=== PATIENT | male | born 1960 | race Caucasian/White ===

== ENCOUNTER 2017-10-16 21:22 | Emergency (ER) | payer MEDICAID ==
--- NOTE | 2017-10-16 21:56 | EDM.PDOC ---
ED HPI GENERAL MEDICAL PROBLEM - General Chief Complaint: ENT Problem Stated Complaint: TOOTH PAIN Time Seen by Provider: 10/16/17 21:45 Source of Information: Reports: Patient History Limitations: Reports: No Limitations - History of Present Illness INITIAL COMMENTS - FREE TEXT/NARRATIVE: Patient is a 57-year-old male presents ED complaining of a pain to the left lower molar. Patient states he had a large filling fall out approximately one month ago. Has been experiencing intermittent pain to the affected tooth. Relieved with a temporary filling. He has not seen a dentist yet. States the pain has become more frequent thus prompting evaluation in in the ED. Denies any fever, nausea, swollen to the gumline, purulent drainage, neck pain, sore throat, or any additional complaints. Left Lower Tooth/Teeth Pain Score (Numeric/FACES): 9 - Related Data Allergies Allergy/AdvReac Type Severity Reaction Status Date / Time No Known Allergies Allergy Verified 10/16/17 21:35 Home Meds: Home Meds Lisinopril 10 mg PO DAILY 10/16/17 [History] Past Medical History Cardiovascular History: Reports: Hypertension Musculoskeletal History: Reports: Other (See Below) Other Musculoskeletal History: right knee scope Social & Family History - Tobacco Use Smoking Status *Q: Never Smoker - Caffeine Use Caffeine Use: Reports: Coffee, Energy Drinks - Recreational Drug Use Recreational Drug Use: No ED ROS ENT - Review of Systems Review Of Systems: ROS reveals no pertinent complaints other than HPI. ED EXAM, ENT - Physical Exam Exam: See Below Exam Limited By: No Limitations General Appearance: Alert, WD/WN, No Apparent Distress Ears: Hearing Grossly Normal Nose: Normal Inspection Mouth/Throat: Other (Left lower posterior molar: Large temporary filling present. No gum swelling present. No purulent drainage. Pain with palpation. No trismus. No drooling. No uvula deviation. Poor dentition throughout.) Head: Atraumatic, Normocephalic Neck: Normal Inspection, Supple, Non-Tender. No: Lymphadenopathy (L), Lymphadenopathy (R) Respiratory/Chest: No Respiratory Distress, No Accessory Muscle Use Neurological: Alert, Oriented, CN II-XII Intact, Normal Cognition, No Motor/ Sensory Deficits Psychiatric: Normal Affect, Normal Mood Skin: Warm, Dry, Intact, Normal Color Course - Vital Signs Last Recorded V/S: Last Vital Signs Temp 96.0 F 10/16/17 21:31 Pulse 86 10/16/17 21:31 Resp 20 10/16/17 21:31 BP 159/112 H 10/16/17 21:31 Pulse Ox 100 10/16/17 21:31 - Re-Assessments/Exams Free Text/Narrative Re-Assessment/Exam: Patient had a large filling that fell out approximately one month ago. Temporary filling in place. No signs of infection present. Patient does require dentist evaluation. Patient is making appointment tomorrow. We'll discharge patient home with a prescription for Mercer with instructions. Departure - Departure Time of Disposition: 21:56 Disposition: Home, Self-Care 01 Condition: Good Clinical Impression: Dental caries extending into dentin - Discharge Information Referrals: Drew Coats Jr, MD [Primary Care Provider] - Additional Instructions: Continue taking ibuprofen and Tylenol in alternating fashion for mild-to- moderate pain. Refrain from chewing on the affected side. For severe pain take Mercer one tablet every 6 hours as needed[address] not drive while taking the Mercer. Call your local dentist and make an appointment for definitive treatment. For further pain management see your PCP.
== END 2017-10-16 22:10 | disposition home or self-care (01) ==
LOC: JD.ED 21:22
DX: K02.9 Dental caries, unspecified (principal); I10 Essential (primary) hypertension; Z79.899 Other long term (current) drug therapy
CPT/HCPCS: 99283

== ENCOUNTER 2021-06-14 06:22 | Emergency (ER) | payer SELFPAY ==
[2021-06-14] MEDS ORDERED: Nitroglycerin 0.3 MG Tab.SL SL PRN (06:42)
[2021-06-14] MEDS ORDERED: Nitroglycerin 0.4 MG Tab.SL ONE (06:44)
[2021-06-14] MEDS ORDERED: Morphine 4 MG/ML Syringe IVPUSH ONE ×2 (06:48→08:29)
[2021-06-14] MEDS ORDERED: Ondansetron 4 MG/2 ML SDV IVPUSH ONE (06:56)
--- NOTE | 2021-06-14 06:56 | EDM.PDOC ---
<Dequan Kong - Last Filed: 06/14/21 10:42> ED HPI GENERAL MEDICAL PROBLEM - General Chief Complaint: Chest Pain Stated Complaint: CHEST PAIN Time Seen by Provider: 06/14/21 06:40 - Related Data Allergies Allergy/AdvReac Type Severity Reaction Status Date / Time No Known Allergies Allergy Verified 06/14/21 06:29 Home Meds: Home Meds Lisinopril 10 mg PO DAILY 10/16/17 [History] Hydrocodone/Acetaminophen [HYDROcodone-Acetaminophen 5-325 MG] 1 - 2 each PO Q6H PRN #14 tab 06/14/21 [Rx] Course - Re-Assessments/Exams Free Text/Narrative Re-Assessment/Exam: 06/14/21 08:24 Assumed care at change of shift CT evaluation CTA of the chest does not show any acute changes there is some mild aneurysmal dilation of the ascending aorta with AP dimensions of 4.3 cm no thoracic aortic dissection or aneurysm is identified CT of the abdomen and pelvis shows mild increased stool throughout the colon. Small fat-containing inguinal hernias noted he has some findings suspicious for some soft tissue swelling the lateral right hip. Laboratory evaluation is nonsuggestive initial troponin negative. He has some mild transaminase elevation On my evaluation the patient still seems to be quite uncomfortable. The patient's pain is upper abdomen lower chest it hurts to palpate the lower chest margins anterior lateral and to a lesser degree posterior. Heart sounds are normal somewhat diminished breath sounds are clear bilaterally no wheezes crackles or rhonchi. Abdomen exam shows active bowel sounds soft no significant tenderness he is got some vague discomfort right underneath the anterior rib margins. No rigidity rebound or guarding noted. Palpation of the R hip area is tender with palpation, however, the patient is ambulatory without difficulty. 06/14/21 10:42 Patient is doing much better after second dose of morphine. His second troponin is normal below our detectable limits. With his negative work-up we will treat him when he has a muscle strain. I will give him a few [place]. With normal precautions Departure - Departure Time of Disposition: 10:42 Disposition: Home, Self-Care 01 Clinical Impression: Chest wall muscle strain, Abdominal wall strain Prescriptions: Hydrocodone/Acetaminophen [HYDROcodone-Acetaminophen 5-325 MG] 1 - 2 each PO Q6H PRN #14 tab PRN Reason: Pain Instructions: Muscle Strain, [id number] Referrals: PCP,None [Primary Care Provider] - Forms: ED Department Discharge Additional Instructions: Return to the emergency room with any questions problems or worsening symptoms. It is essential you follow-up with your regular healthcare provider. You should be seen for recheck towards the end of this next week. Also your liver enzymes were slightly elevated here in the emergency room this should be followed. I gave you a prescription for a few hydrocodone. Take 1 or 2 every 6 hours as needed for pain. Allow 12 hours after using this medication before driving or returning to work you may use ibuprofen or Tylenol as needed as well. Keep an eye on your daily total of Tylenol the pain pills I gave you each tablet contains 325 mg of Tylenol in addition to the hydrocodone. Your daily Tylenol level should not exceed 4000 mg within a 24-hour period. <Rome Ortiz - Last Filed: 06/14/21 20:56> ED HPI GENERAL MEDICAL PROBLEM - General Source of Information: Reports: Patient History Limitations: Reports: No Limitations - History of Present Illness INITIAL COMMENTS - FREE TEXT/NARRATIVE: Patient is 60-year-old male presenting to the emergency room with chief complaint of chest pain. Patient states the chest pain started around 3 to 4 hours ago. Patient reports the pain gradual in onset feels like his heart is going to explode. Patient reports feeling it goes straight through to his mid back between his shoulder blades. Patient states he is unable to find a comfortable position. He feels pain when he takes a deep breath. Patient feels some mild shortness of breath but denies any nausea, vomiting, diaphoresis. Onset of pain was the patient was at rest. Patient states he spent Tuesday evening into Tuesday morning taking a car out of the snow for 7 to 8 hours. He states he had some shortness of breath then but not any more than usual. Denies any chest pain at that time. Patient otherwise denies any similar type symptoms. Patient states he takes high blood pressure medication but denies any smoking history or any other medical problems. Treatments MEDICAL OFFICE REPRESENTATIVE: Reports: EKG Chest Pain Score (Numeric/FACES): 10 Past Medical History Cardiovascular History: Reports: Hypertension Musculoskeletal History: Reports: Other (See Below) Other Musculoskeletal History: right knee scope Social & Family History - Tobacco Use Tobacco Use Status *Q: Unknown Ever Used Tobacco - Caffeine Use Caffeine Use: Reports: Coffee, Energy Drinks ED ROS GENERAL - Review of Systems Review Of Systems: See Below Free Text/Narrative/Comment: In addition to that documented in the HPI above, the additional ROS was obtained: Constitutional: Denies fevers or chills Eyes: Denies vision changes ENMT: Denies sore throat CV: Per HPI Resp: Denies SOB GI: Denies vomiting or diarrhea : Denies painful urination MSK: Denies recent trauma Skin: Denies new rashes Neuro: Denies new numbness or tingling or weakness Endocrine: Denies unexpected weight loss Heme: Denies bleeding disorders ED EXAM, GENERAL - Physical Exam Exam: See Below Free Text/Narrative:: I have reviewed the triage vital signs Const: Obese, writhing in bed in pain. Grimacing Eyes: Pupils Equal and reactive to light bilaterally, no conjunctival injection HENT: No signs of trauma or swelling, Neck supple without meningismus CV: Regular Rate Rhythm, Warm, well-perfused extremities RESP: Taking short shallow breaths GI: soft, non-tender, non-distended, no masses MSK: No gross deformities appreciated Skin: Warm, dry. 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 Sensation and motor function of extremities grossly intact. Psych: Appropriate mood and affect. #1 Interpretation EKG Date: 06/14/21 Time: 06:23 Rhythm: NSR Rate (Beats/Min): 59 [place]: LAD-Left [place] Deviation P-Wave: Present QRS: LBBB ST-T: Normal QT: Normal Comparison: NA - No Prior EKG EKG Interpretation Comments: abnormal ekg #2 Interpretation EKG Date: 06/14/21 Time: 07:00 Rhythm: NSR Rate (Beats/Min): 69 [place]: LAD-Left [place] Deviation P-Wave: Present QRS: LBBB ST-T: Normal QT: Normal Comparison: No Change EKG Interpretation Comments: abnormal ekg Course - Vital Signs Last Recorded V/S: Last Vital Signs Temp 36.1 C 06/14/21 06:29 Pulse 77 06/14/21 06:29 Resp 33 H 06/14/21 06:29 BP 152/70 H 06/14/21 06:52 Pulse Ox 100 06/14/21 06:29 - Orders/Labs/Meds Labs: Laboratory Tests 10/06/14/21 06/14/21 Range/Units 06:29 06:29 06:29 WBC 7.21 (4.23-9.07) K/mm3 RBC 5.29 (4.63-6.08) M/mm3 Hgb 15.8 (13.7-17.5) gm/dl Hct 47.6 (40.1-51.0) % MCV 90.0 (79.0-92.2) fl MCH 29.9 (25.7-32.2) pg MCHC 33.2 (32.2-35.5) g/dl RDW Std Deviation 44.8 H (35.1-43.9) fL Plt Count 217 (163-337) K/mm3 MPV 9.3 L (9.4-12.3) fl Neut % (Auto) 59.9 (34.0-67.9) % Lymph % (Auto) 25.2 (21.8-53.1) % Lyman % (Auto) 13.3 H (5.3-12.2) % Eos % (Auto) 1.2 (0.8-7.0) Baso % (Auto) 0.1 (0.1-1.2) % Neut # (Auto) 4.31 (1.78-5.38) K/mm3 Lymph # (Auto) 1.82 (1.32-3.57) K/mm3 Lyman # (Auto) 0.96 H (0.30-0.82) K/mm3 Eos # (Auto) 0.09 (0.04-0.54) K/mm3 Baso # (Auto) 0.01 (0.01-0.08) K/mm3 PT 10.0 (9.7-12.0) SECONDS INR < 0.93 Sodium 134 L (136-145) mEq/L Potassium 4.2 (3.5-5.1) mEq/L Chloride 101 (98-107) mEq/L Carbon Dioxide 23 (21-32) mEq/L Anion Gap 14.2 (5-15) BUN 13 (7-18) mg/dL Creatinine 1.0 (0.7-1.3) mg/dL Est Cr Clr Drug Dosing 85.14 mL/min Estimated GFR (MDRD) > 60 (>60) mL/min BUN/Creatinine Ratio 13.0 L (14-18) Glucose 114 H (70-99) mg/dL Calcium 8.9 (8.5-10.1) mg/dL Total Bilirubin 0.8 (0.2-1.0) mg/dL AST 72 H (15-37) U/L ALT 71 H (16-63) U/L Alkaline Phosphatase 57 (46-116) U/L Troponin I < 0.017 (0.00-0.056) ng/mL Total Protein 7.6 (6.4-8.2) g/dl Albumin 3.5 (3.4-5.0) g/dl Globulin 4.1 gm/dL Albumin/Globulin Ratio 0.9 L (1-2) 06/14/21 Range/Units 09:33 WBC (4.23-9.07) K/mm3 RBC (4.63-6.08) M/mm3 Hgb (13.7-17.5) gm/dl Hct (40.1-51.0) % MCV (79.0-92.2) fl MCH (25.7-32.2) pg MCHC (32.2-35.5) g/dl RDW Std Deviation (35.1-43.9) fL Plt Count (163-337) K/mm3 MPV (9.4-12.3) fl Neut % (Auto) (34.0-67.9) % Lymph % (Auto) (21.8-53.1) % Lyman % (Auto) (5.3-12.2) % Eos % (Auto) (0.8-7.0) Baso % (Auto) (0.1-1.2) % Neut # (Auto) (1.78-5.38) K/mm3 Lymph # (Auto) (1.32-3.57) K/mm3 Lyman # (Auto) (0.30-0.82) K/mm3 Eos # (Auto) (0.04-0.54) K/mm3 Baso # (Auto) (0.01-0.08) K/mm3 PT (9.7-12.0) SECONDS INR Sodium (136-145) mEq/L Potassium (3.5-5.1) mEq/L Chloride (98-107) mEq/L Carbon Dioxide (21-32) mEq/L Anion Gap (5-15) BUN (7-18) mg/dL Creatinine (0.7-1.3) mg/dL Est Cr Clr Drug Dosing mL/min Estimated GFR (MDRD) (>60) mL/min BUN/Creatinine Ratio (14-18) Glucose (70-99) mg/dL Calcium (8.5-10.1) mg/dL Total Bilirubin (0.2-1.0) mg/dL AST (15-37) U/L ALT (16-63) U/L Alkaline Phosphatase (46-116) U/L Troponin I < 0.017 (0.00-0.056) ng/mL Total Protein (6.4-8.2) g/dl Albumin (3.4-5.0) g/dl Globulin gm/dL Albumin/Globulin Ratio (1-2) Meds: Medications Discontinued Medications Generic Name Dose Route Start Last Admin Trade Name Freq PRN Reason Stop Dose Admin Sodium Chloride 100 mls @ 80 mls/min 06/14/21 07:30 06/14/21 07:26 Normal Saline IV 80 mls/min ASDIRECTED HENRI Administration Iopamidol 25 ml 06/14/21 07:24 06/14/21 07:25 Iopamidol 755 Mg/Ml 50 Ml Bottle IVPUSH 06/14/21 07:25 50 ml ONETIME ONE Administration Iopamidol 100 ml 06/14/21 07:24 06/14/21 07:26 Iopamidol 755 Mg/Ml 100 Ml Bottle IVPUSH 06/14/21 07:25 100 ml ONETIME ONE Administration Morphine Sulfate 4 mg 06/14/21 06:48 06/14/21 06:53 Morphine 4 Mg/Ml Syringe IVPUSH 06/14/21 06:49 4 mg ONETIME ONE Administration Morphine Sulfate 4 mg 06/14/21 08:29 06/14/21 08:47 Morphine 4 Mg/Ml Syringe IVPUSH 06/14/21 08:30 4 mg ONETIME ONE Administration Nitroglycerin 0.3 mg 06/14/21 06:42 06/14/21 06:52 Nitroglycerin 0.3 Mg Tab.Sl SL 0.3 mg Q5M PRN Administration Chest Pain Nitroglycerin Confirm 06/14/21 06:44 06/14/21 06:46 Nitroglycerin 0.4 Mg Tab.Sl Administered 06/14/21 06:45 0.4 mg Dose Administration 0.4 mg .ROUTE .STK-MED ONE Ondansetron HCl 4 mg 06/14/21 06:56 06/14/21 07:04 Ondansetron 4 Mg/2 Ml Sdv IVPUSH 06/14/21 06:57 4 mg ONETIME ONE Administration Sodium Chloride 10 ml 06/14/21 07:25 06/14/21 07:26 Sodium Chloride 0.9% 10 Ml Sdv FLUSH 06/14/21 07:26 10 ml ONETIME ONE Administration Sepsis Event Note (ED) - Evaluation Sepsis Screening Result: No Definite Risk - Assessment/Plan Assessment:: Patient is 60-year-old male presenting to emergency room with a chief complaint of chest pain. Patient initially extremely uncomfortable in appearance. Hospital course included administration of sublingual nitroglycerin which provided no relief from patient's pain. Subsequently, patient did receive intravenous morphine. Serial EKGs were performed in the emergency room but no evidence of STEMI. Patient did have evidence of left bundle branch block. Fortunately, no evidence of prior. There was appropriate discordance. Patient underwent laboratory testing as well as chest x-ray and CT. Differential diagnosis considered for this patient include ACS, pulmonary embolism, aortic dissection, esophageal perforation. Initial troponin negative. Chest x-ray questionable for widened mediastinum patient continued to be extremely uncomfortable so patient underwent CT angiogram to evaluate for aortic dissection. At this point in time, patient is pending this study and hemodynamically stable. Routine shift change left me to sign outpatient to Dr. Kong who will assume care of this patient pending reevaluation and further study completion.
[2021-06-14] MEDS ORDERED: Iopamidol 755 Mg/ML 100 ML Bottle IVPUSH ONE (07:24)
[2021-06-14] MEDS ORDERED: Iopamidol 755 MG/ML 50 ML Bottle IVPUSH ONE (07:24)
[2021-06-14] MEDS ORDERED: Sodium Chloride 0.9% 10 ML SDV FLUSH ONE (07:25)
[2021-06-14] MEDS ORDERED: Sodium Chloride 0.9% 100 ML IV SCH (07:30)
--- NOTE | 2021-06-14 07:55 | CT ---
CT chest Technique: Multiple axial sections were obtained from above the lung apices inferiorly through the lung bases. Intravenous contrast was utilized. Study was performed during the arterial phase. Comparison: No prior chest CT, prior chest x-ray performed earlier on the same day (6:45 AM). Findings: Ascending aorta is slightly aneurysmal with AP dimension of 4.3 cm. Descending thoracic aorta shows no abnormality. No dissection is seen. Visualized pulmonary arteries show no filling defects to indicate pulmonary embolism. Mediastinum and hilar regions show no adenopathy. No pericardial thickening is seen. Lung window settings were reviewed. Nodule is noted within the left lower lung measuring 1.5 cm. Nodule appears to be calcified and most likely represents a granuloma. Lungs otherwise are clear with no acute parenchymal change. Bone window settings were reviewed. Several slight compression deformities are seen within the upper thoracic spine which are likely old. No acute osseous abnormality is definitely appreciated. Impression: 1. Two slight compression deformities within the upper thoracic spine which are likely old. 2. Calcified nodule within the left lung base most likely representing a granuloma. 3. Mild aneurysmal dilatation of the ascending aorta with AP dimension of 4.3 cm. No thoracic aortic aneurysm or dissection is seen. 4. No other acute abnormality is appreciated on CT study of the chest. Diagnostic code #3 CT abdomen and pelvis Technique: Multiple axial sections were obtained from above the dome of the diaphragm inferiorly through the pubic symphysis. Intravenous contrast was utilized. No oral contrast has been given. Reconstructed coronal and sagittal images were obtained. Comparison: No prior abdominal imaging is available. Findings: Liver contains no focal parenchymal abnormality. Gallbladder contains no calcified gallstones. Spleen size is within normal limits. Pancreas shows no discrete abnormality. Adrenal glands show no nodule. Kidneys show symmetric contrast enhancement. No hydronephrosis or mass is seen within either kidney. Small hiatal hernia is noted. Pancreas is within normal limits. Abdominal aorta shows no aneurysm or dissection. No retroperitoneal adenopathy or mesenteric abnormalities are seen. Appendix is seen which is normal. No pelvic mass or adenopathy is seen. Small fat-containing right inguinal hernia is noted. Mild scattered degenerative change is seen within the lumbar spine. Mild degenerative change is noted within both sacroiliac joints. No bowel dilatation is seen. Slight increased stool is seen within the colon. No free fluid or inflammatory change is seen. There is soft tissue swelling being seen within the subcutaneous tissues of the right lateral hip. Impression: 1. Mild increased stool throughout the colon. Small fat-containing inguinal hernia is noted. Small hiatal hernia is noted. 2. Mild degenerative change scattered within the lumbar spine as well as sacroiliac joints. 3. Findings suspicious for mild soft tissue swelling lateral to the right hip. 4. No acute abnormality is otherwise appreciated on CT study of the abdomen and pelvis. Diagnostic code #3
--- NOTE | 2021-06-14 09:14 | CR ---
Chest: Portable view of the chest was obtained. Comparison: No prior chest imaging is available. Heart size is at the upper limits of normal. Upper mediastinum is within normal limits. Lungs are clear with no acute parenchymal change. Bony structures show nothing acute. Impression: 1. Nothing acute is seen on portable chest x-ray. 2. Subsequent chest findings noted on chest CT are not appreciated on chest x-ray. Diagnostic code #1
== END 2021-06-14 11:11 | disposition home or self-care (01) ==
LOC: JD.ED 06:22
DX: S29.011A Strain of muscle and tendon of front wall of thorax, initial encounter (principal); S39.011A Strain of muscle, fascia and tendon of abdomen, initial encounter; I10 Essential (primary) hypertension; I44.7 Left bundle-branch block, unspecified; Z79.899 Other long term (current) drug therapy; X58.XXXA Exposure to other specified factors, initial encounter
CPT/HCPCS: 36415; 71045; 71275; 80053; 84484; 85025; 85610; 93005; 96374; 96375; 96376; 99285; A9270; J2270; J2405; Q9967

== ENCOUNTER 2022-01-06 19:55 | Emergency (ER) | payer OTHER ==
[2022-01-06] MEDS ORDERED: HYDROmorphone 1 MG/ML Syringe IM ONE (21:28)
[2022-01-06] MEDS ORDERED: Orphenadrine 100 MG Tab.ER PO STA (22:16)
== END 2022-01-06 23:26 | disposition home or self-care (01) ==
LOC: JD.ED 19:55
DX: S22.42XA Multiple fractures of ribs, left side, initial encounter for closed fracture (principal); I10 Essential (primary) hypertension; Z79.899 Other long term (current) drug therapy; X50.0XXA Overexertion from strenuous movement or load, initial encounter
CPT/HCPCS: 71101; 81003; 96372; 99283; A9270; J1170